=== PATIENT | male | born 1945 | race Caucasian/White ===

== ENCOUNTER → 2021-05-15 | Day surgery (SDC) | payer MEDICARE, OTHER ==
[2021-05-14 09:48] LABS: Urine Bacteria NONE SEEN /hpf (None Seen); Urine Blood Negative /uL (Negative); Urine Specific Gravity 1.025 (1.001-1.035); Urine WBC 3 /hpf (0 - 3)
[2021-05-14 09:49] LABS: Basophils # (auto) 0.1 10 ^3/uL (0-0.2); Basophils % (auto) 0.8 % (0.0-2.0); Eosinophils # (auto) 0.1 10 ^3/uL (0-0.8); Eosinophils % (auto) 1.5 % (0.0-7.0); Hematocrit 42.8 % (41.0-53.0); Hemoglobin 14.5 g/dL (13.5-17.5); INR 1.01 (0.9-1.15); Lymphocytes # (auto) 1.6 10 ^3/uL (0.4-5.4); Lymphocytes % (auto) 24.3 % (10.0-50.0); Mean Corpuscular Hemoglobin 31.1 pg (28.0-32.0); Mean Corpuscular Hgb Conc. 33.8 g/dL (32.0-36.0); Mean Corpuscular Volume 92.1 fL (80.0-100.0); Monocytes # (auto) 0.6 10 ^3/uL (0-1.3); Monocytes % (auto) 9.3 % (0.0-12.0); Neutrophils # (auto) 4.2 10 ^3/uL (1.6-8.6); Neutrophils % (auto) 64.1 % (37.0-80.0); Nucleated Red Blood Cells % 0.1 %; Partial Thromboplastin Time 27.3 sec (23.6-33.0); Red Blood Cells 4.65 10^6/uL (4.5-5.90); Red Cell Distribution Width 14.7 % (11.8-14.3); White Blood Cell 6.5 10^3/uL (4.4-10.8)
[2021-05-14 10:34] LABS: Calcium 8.8 mg/dL (8.5-10.1); Potassium 4.6 mmol/L (3.5-5.1)
[2021-05-14 10:37] LABS: Bilirubin, Total 0.4 mg/dL (0.2-1.0); Total Protein 7.1 g/dL (6.4-8.2)
[~2021-05-15] VITALS: Ht 180.3 cm; Wt 81.6 kg
[~2021-05-15] MED LIST: ASPI1TAB20 PO; ATO40T PO; DexAMETHasone SOD PHOS 10MG/1ML VIAL INJ ONE; HYDROmorphone HCL 2 MG/ML VL IV PRN; LIDOCAINE 1% HCL (LOCAL ANESTH.) INJ 20ML MDV ONE; METOCLOPRAMIDE HCL 5MG/ml INJ 2ml VIAL IV PRN; MIDAZOLAM HCL 2MG/2ML 2ml VIAL (1mg/ml) ONE; MORPHINE SULFATE 4 MG/ML SYR/VIAL IV PRN; ONDANSETRON HCL 4 MG/2 ML VIAL ONE; PROPOFOL 10 MG/ML 20 ML IV ONE; THYR60TA PO; ceFAZolin 1GM VL ONE; ceFAZolin 1GM/50ML 100 ML IV ONE; fentaNYL CITRATE 100 MCG/2 ML VL ONE
[2021-05-15 10:30] VITALS: BP 108/65
== END | disposition home or self-care (01) ==
LOC: SUR 07:23
PROVIDERS: ATTEND Podiatrist Foot & Ankle Surgery
DX: M21.531 Acquired clawfoot, right foot (principal); L84 Corns and callosities; D16.22 Benign neoplasm of long bones of left lower limb; E78.5 Hyperlipidemia, unspecified; E03.9 Hypothyroidism, unspecified; Z98.890 Other specified postprocedural states; Z79.899 Other long term (current) drug therapy; Z20.822 Contact with and (suspected) exposure to COVID-19
CPT/HCPCS: 28285; 36415; 80053; 81001; 85025; 85610; 85730; 88305; 88311; C1713; J0690; J1100; J2001; J2250; J2405; J2704; J3010; U0003